=== PATIENT | female | born 1950 | race Caucasian/White ===

== ENCOUNTER 2025-05-08 13:35 | Outpatient (AMB) | payer MEDICARE, SELFPAY ==
--- NOTE | 2025-05-08 13:39 | MHC.OFFVIS ---
Vital Signs 05/08/25 13:40 Height 5 ft 5 in Weight 138 lb 14.259 oz BMI 23.1 BP 100/60 Blood Pressure Location Rt brachial Position Sitting Pulse 72 Pulse Source Pulse Oximeter Pulse Oximetry (%) 98 Oxygen Delivery Method Room Air Intake Visit Reasons: arthritis Intake Note: Patient presents today for arthritis. Accompanied by: Self / Same As Patient Allergies cyclosporine (From Restasis) Allergy (Mild, Verified 05/08/25 13:48) eye burning dapagliflozin (From Farxiga) Allergy (Mild, Verified 05/08/25 13:48) Nausea erythromycin base Allergy (Mild, Verified 05/08/25 13:48) Nausea semaglutide (From Ozempic) Allergy (Mild, Verified 05/08/25 13:48) Nausea valsartan (From Diovan) Allergy (Mild, Verified 05/08/25 13:48) Cough lisonopril Allergy (Mild, Uncoded 05/08/25 13:48) Cough meibo Allergy (Mild, Uncoded 05/08/25 13:48) eye running HPI HPI arthritis: Details: MS lasting all day. Pain in hands, toes and back. Hands are cramping. No recent infections. Lasting Simponi Aria 03/13/2025. November 2024 after vacation she had CHF exacerbation due to nonadherence to low-sodium diet. She was treated with 5 day course of furosemide. She continues to monitor her weight and uses furosemide PRN if her weight increases. She continues to take calcium and vitamin-D. She is not taking any multivitamin. DXA is scheduled on 06/07/2025. 3 weeks ago she had lumbar spine x-ray. Patient reports that her doctor told her that lumbar spine arthritis is progressing. She was prescribed physical therapy but has lost requisition on 2 occasions. Physical Exam Vital Signs: Last Vital Signs Pulse 72 05/08/25 13:40 BP 100/60 05/08/25 13:40 Pulse Ox 98 05/08/25 13:40 Oxygen Delivery Method Room Air 05/08/25 13:40 BMI result Body Mass Index 23.1 Const Other: General: Comfortable CVS: RRR Respiratory: clear to auscultation bilaterally. Good respiratory effort Skin: No lesions seen MSK: Chronic synovial thickening left 2nd MCP. Volar subluxation of bilateral 2nd and 3rd MCPs with ulnar deviation. She has dactylitis of right 2nd toe distally with tender PIP and DIPJ. No MTP tenderness. No ankle tenderness. Normal range motion of upper extremities and lower extremities. Assessment & Plan Assessment & Plan (1) Psoriatic arthritis: Comment: She has developed recurrent right 2nd toe dactylitis. She is due for Simponi Aria periods Taltz was approved in December but it was not started. We discussed changing DMARD therapy to better control her inflammatory arthritis. Rheumatology history: Presenting with dactylitis right 2nd to 4th toe with enthesitis (plantar fasciitis and trochanteric bursitis). HLA B27 negative. Dactylitis resolve with diclofenac gel initially but became recurrent. Contraindication to oral NSAIDs due to CHF. Otezla caused worsening GERD. Cosentyx-patient could not afford high co-pay 1300 dollars a month. Ustekinumab November 08, 2019 to March 15, 2020 insurance stopped coverage. Xeljanz July 15, 2020 to September 14, 2020 ($ 1600 monthly cost, patient purchasing administrative assistant program denied). Remicade January 13, 2021 to October 15, 2021 discontinued due to recurrent UTIs. Simponi January 2022-she is also on low-dose methotrexate. TB 06/2024 negative [facility] records. Code(s): L40.50 - Arthropathic psoriasis, unspecified Category: Medical Plan: Labs for drug monitoring on high-risk medication ordered Patient will call office to find out cost of co-pay for Taltz. If it is financially feasible, I will send prescription for Taltz 160 mg once for induction followed by 80 mg every 4 weeks for maintenance She will need nurse teaching visit for 1st dose administration in the office and labs 1 month after starting Taltz with CBC, creatinine, AST, ALT [facility] Return to clinic in 3 months (2) Other assisted (current) drug therapy: Code(s): Z79.899 - Other keno terminal operator (current) drug therapy Category: Medical Plan: See above (3) Chronic combined systolic and diastolic CHF (congestive heart failure): Comment: Stable Code(s): I50.42 - Chronic combined systolic (congestive) and diastolic (congestive) heart failure Category: Medical Plan: Follow up with Cardiology (4) Osteoporosis: Comment: With fragility fracture right shoulder. She has history of GERD. She received Reclast 10/30/2019, October 2020, November 2021, November 2022, November 2023. Code(s): M81.0 - Age-related osteoporosis without current pathological fracture Category: Medical Qualifiers: Osteoporosis type: age-related Presence of current pathological fracture: without current pathological fracture Qualified Code(s): M81.0 - Age-related osteoporosis without current pathological fracture Plan: Calcium, albumin, vitamin-D ordered Continue calcium and vitamin-D supplement DXA is scheduled on 06/07/2025 (5) Lumbar spondylosis: Comment: Chronic, progressive per patient confirmed on recent L-spine x-ray. Code(s): M47.816 - Spondylosis without myelopathy or radiculopathy, lumbar region Category: Medical Plan: PT ordered for patient for back strengthening Requesting L-spine x-ray from [facility] (6) Muscle cramp: Comment: Involves her hands. Recurrent. Self-limited. She hydrates well. Code(s): R25.2 - Cramp and spasm Category: Medical Plan: I will order electrolytes to rule out electrolyte disturbance Return to clinic in 3 months Orders: Orders Complete Blood Count Auto Diff Today Z79.899 - Other keno terminal operator (current) drug therapy Creatinine Today Z79.899 - Other keno terminal operator (current) drug therapy C Reactive Protein Today Z79.899 - Other keno terminal operator (current) drug therapy Albumin Level Today M81.0 - Age-related osteoporosis without current pathological fracture Phosphorus Today R25.2 - Cramp and spasm Sodium Today R25.2 - Cramp and spasm PT Evaluation and Treatment Today M47.816 - Spondylosis without myelopathy or radiculopathy, lumbar region Alanine Aminotransferase Today Z79.899 - Other assisted (current) drug therapy Aspartate Amino Transferase Today Z79.899 - Other keno terminal operator (current) drug therapy Erythrocyte Sedimentation Rate Today Z79.899 - Other keno terminal operator (current) drug therapy Hepatitis B,C Profile Today Z79.899 - Other keno terminal operator (current) drug therapy Vitamin D 25-OH Total Today M81.0 - Age-related osteoporosis without current pathological fracture Calcium Today M81.0 - Age-related osteoporosis without current pathological fracture Magnesium Today R25.2 - Cramp and spasm Potassium Today R25.2 - Cramp and spasm Coding Level of Care Code Est Pt Level 5 (79783) Complex EM visit Add On G2211 Diagnoses Psoriatic arthritis L40.50 Other assisted (current) drug therapy Z79.899 Chronic combined systolic and diastolic CHF (congestive heart failure) I50.42 Age-related osteoporosis without current pathological fracture M81.0 Osteoporosis type: age-related Presence of current pathological fracture: without current pathological fracture Lumbar spondylosis M47.816 Muscle cramp R25.2 Time Spent (min) 40
[2025-05-08 13:40] VITALS: BP 100/60; PULSE 72; O2SAT 98; BMI 23.1
--- OUTSIDE RECORDS SUMMARY | 2025-05-08 14:03 | XMS_ITS | Clinical Summary ---
Author Organization [facility] Address [address] [place] [phone] Phone Care Team Providers Care Deicer Repairer Electric Name Role Phone Aramis Acosta MD Primary Care Provider [phone] Allergies Active Allergy Reactions Criticality Noted Date Comments Cyclosporine Itching,Other (See Comments),Rash Low 04/16/2016 Other Reaction(s): Burning in Eyes Other reaction(s): Other (See Comments) Dapagliflozin 09/11/2024 Other Reaction(s): caused UTI Erythromycin Nausea And Vomiting,Nausea and/or Vomiting 12/10/2009 Lisinopril Cough,Other (See Comments) 02/09/2010 Cough Medications golimumab (SIMPONI ARIA) 12.5 mg/mL Soln Inject 50 mg into the vein. Active alcaftadine (LASTACAFT) 0.25 % Drop Place 1 drop into each eye daily. Active acetaminophen (TYLENOL ARTHRITIS PAIN) 650 MG CR tablet Tylenol Arthritis Pain Active furosemide (LASIX) 20 MG tablet Take 20 mg by mouth daily as needed. Active zoledronic acid (RECLAST) 5 mg/100 mL PgBk as directed Intravenous Once a year x 3 years Active aspirin 81 MG EC tablet Take 81 mg by mouth daily. Active dextran 70-hypromellose -glycern (ARTIFICIAL TEARS) 0.1-0.3-0.2 % as directed Ophthalmic Active betamethasone valerate 0.1 % ointment 1 Application. Activ e calcium carbonate-vit D3-min 600 mg-10 mcg (400 unit) Tab Take by mouth. Activ e esomeprazole (NEXIUM) 40 MG capsule 1 capsule. Active estradioL (ESTRACE) 0.5 MG tablet Take 0.5 mg by mouth daily. for 90 days Active sacubitriL-vals malorie (ENTRESTO) 24-26 mg per tablet TAKE 1 TABLET BY MOUTH TWICE DAILY Oral for 90 Active spironolactone (ALDACTONE) 25 MG tablet Take 1 tablet by mouth daily. 4 Active venlafaxine (EFFEXOR-XR) 37.5 MG 24 hr capsule Take 37.5 mg by mouth daily. Active carvedilol (COREG) 6.25 MG tablet Take 6.25 mg by mouth 2 (two) times a day. Active turmeric 400 mg Cap Take by mouth daily. Active methotrexate sodium 25 mg/mL injection INJECT 10 MG/0.4ML UNDER THE SKIN ONCE A WEEK Active folic acid (FOLVITE) 1 MG tablet Take 1 tablet by mouth every morning. 4 Active Active Problems Problem Noted Date Diagnosed Date Hypertension 09/12/2024 Overview (09/12/2024): Last Assessment & Plan: The patient is labeled as having hypertension her heart failure medications have her in a hypotensive state which she appears to tolerate quite well running between upper 80s and 90s systolically. She has no syncopal episodes a few months ago her fark CIGA had to be discontinued by the heart failure specialist and carvedilol was reduced in half she did not really notice a significant improvement but does not believe this is interfering in her quality of life. No additional medication adjustments are made today. She knows that when she is exercising in this heat she should be cognizant of an adequate amount of fluid without excessive fluid intake which she appears to have a good understanding of. 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 Will repeat TFTs. Multinodular goiter 09/12/2024 Assessment & Plan (09/12/2024 1:18 PM EST): Hx MNG w/ benign FNA x 3 in 2015 per PCP notes. Has hoarseness. Has seen ENT w/o finding (?~ 18 months ago). Has hx laryngeal polyps, post-nasal drip & GERD. For EGD for dysphagia which seems lower in chest. Doubt either related to thyroid. Would consider revisit w/ ENT. Will repeat thyroid u/s to assess stability. Hair loss 09/12/2024 Assessment & Plan (09/12/2024 1:19 PM EST): Will repeat TFTs along w/ other labs. Likely at least in part due to age/genetics as apparently both sisters w/ similar (worse). Age-related osteoporosis wit hout current pathological fracture 09/12/2024 Assessment & Plan (09/12/2024 1:16 PM EST): S/p shoulder fx after fall. Has received zoledronic acid, she believes x3. Seeing dentist regularly. Managed by rheumatology. Would discuss with them ongoing treatment as typically do not use both estrogen & anti-resorptive therapy concurrently & she has no plans to stop estrogen. IBS (irritable bowel syndrome) 04/26/2021 VT (ventricular tachycardia) 04/22/2021 Overview (09/12/2024): Last Assessment & Plan: She has a prophylactic ICD in place I spoke with the device clinic who did an evaluation of her most current data she tends to have nonsustained V. tach about twice a month and no greater than 9 bpm. She is on a beta-marco antonio she does not note these symptomatically. We will continue to monitor. Again electrolytes are stable AICD (automatic cardioverter/defibrillator) pres ent 02/05/2020 Psoriasis 08/28/2018 Hearing loss 03/11/2014 Depression 08/10/2013 Colon polyp 01/03/2013 Overview (09/12/2024): 01/06 Dr Ash; EGD normal Mild sleep apnea 06/23/2011 Overview (09/12/2024): No treatment advised Onychomycosis 03/25/2011 Sun-damaged skin 12/23/2010 Overview (09/12/2024): Sees derm yearly Dyslipidemia 05/20/2010 Overview (09/12/2024): Last Assessment & Plan: The patient was found to have an 80% stenosis of her mid LAD in 2020 and heart catheterization with circumflex territory at 65% OM1 and L PDA between 35 and 30% respectively. Because she was completely asymptomatic and it was not theorized to be a contributing factor to her cardiomyopathy she has been treated medically and despite walking 10,000 steps a day climbing a steep set of stairs she has absolutely no anginal symptoms. I would highly recommend she be on a statin we will start a minuscule amount of rosuvastatin she has been instructed on the potential side effects especially given her psoriatic arthritis and chronic arthritic pains if she believes anything is where she should stop the drug and otify me. If she is able to tolerate the statin can plan to collect repeat lipids if not done so by her follow-up visit. Idiopathic cardiomyopathy 12/20/2009 Overview (09/12/2024): 12/03 EF approx 25%; 09/04 similar; 11/[address] Tan 06/2019 EF 25-30%, similar 2020 Referred to advanced [facility] failure and [facility] at [facility] 07/2019 Stable EF 03/2021 Last Assessment & Plan: Idiopathic cardiomyopathy theorized to possibly be a genetic etiology. She appears euvolemic. She exercises regularly she is on Entresto spironolactone beta- blockade but she cannot tolerate Farxiga as she becomes volume depleted and she has chronic UTI. She is followed by the heart failure clinic 2 times a year and appears to be doing exceptionally well. He should continue to monitor her volume status closely and notify us particularly of any extreme changes in either direction. GERD (gastroesophageal reflux disease) 0 Allergic rhinitis 11/09/2007 Immunizations Immunization Administration Dates Next Due COVID-19 (Pre-07/18) Pfizer Vaccine, Bivalent 12+ 09/23/2022 COVID-19 (Pre-07/18) Pfizer Vaccine, mRNA, PF 04/08/2022,08/14/2021,12/19/2020,11/28 COVID-19 Moderna Spikevax Vaccine 12+ 08/21/2023 INFLUENZA, SPLIT VIRUS, TRIV ALENT W/ PRESERVATIVE IM 06/07/2023 Influenza High-Dose Quadriva lent Preservative Free IM 05/30/2020,07/12/2016 Pneumococcal conjugate PCV20 11/25/2023 Pneumococcal polysaccharide PPSV23 06/18/2021 Tdap 05/22/2014 Zoster recombinant 10/02/2020 Family History Medical History Relation Comments Thyroid disease Sister both sisters, at least 1 w/ Uvaldo's, ? if mother also had? Relation Status Comments Sister Social History Tobacco Use Types Packs/Day Years Used Date Smoking Tobacco: Never Smokeless Tobacco: Never Tobacco Cessation:Counseling Given: Not Answered Alcohol Use Standard Drinks/Week Comments Yes 0 (1 standard drink = 0.6 oz pur e alcohol) A drink every night. Education Answer Date Recorded Are you interested in more education? Not on ananth e 04/06/2024 Are you concerned about learning? Not on file 04/06/2024 No 04/06/2024 No 04/06/2024 Digital Access Answer Date Recorded No 04/06/2024 No 04/06/2024 Reliable internet access at home? Not on file 04/06/2024 Device with a working camera? Not on file Comments Unknown Sex and Gender Information Value Date Recorded Sex Assigned at Not on file Legal Sex Female 3:13 PM EDT Gender Identity Not on file Sexual Orientation Not on file Last Filed Vital Signs Vital Sign Reading Time Taken Comments Blood Pressure 102/52 09/11/2024 12:51 PM EST Pulse 80 09/11/2024 12:51 PM EST Temperature 36.3 C (97.3 F) 09/11/2024 12:51 PM EST Respiratory Rate 19 09/11/2024 12:51 PM EST Oxygen Saturation 97% 09/11/2024 12:51 PM EST Inhaled Oxygen Concentration - - Weight 65.8 kg (145 lb) 09/11/2024 12:51 PM EST Height 153.7 cm (5' 0.51 ) 09/11/2024 12:51 PM Bryant LING Body Mass Index 27.84 09/11/2024 12:51 PM EST Plan of Treatment Upcoming Encounters Date Type Department Care Team (Late st Contact Info) Description 09/16/2025 10:00 AM EST Office Visit [facility] Endocrinology [address] [phone] Ara Walton MD [address] [place] [phone] [email or web address] Maintenance Due Date Last Done Comments POTASSIUM LEVEL 1950 DEPRESSION SCREENING 1962 HEPATITIS C SCREENING 1968 MAMMOGRAM 1990 COLOGUARD 1995 COLONOSCOPY 1995 COLORECTAL CANCER SCREENING 1995 FIT TEST 1995 FOBT 1995 SIGMOIDOSCOPY 1995 VIRTUAL COLONOSCOPY 1995 RSV VACCINE (1 - Risk 60-74 years 1-dose series) 2010 OSTEOPOROSIS SCREENING INITIAL (ONE-TIME) 2015 ZOSTER VACCINES (2 of 2) 11/27/2020 10/02/2020 Adult Td,Tdap Booster 05/22/2024 05/22/2014 COVID-19 VACCINE ( season) 2024 08/21/2023, 09/23/2022, 04/08/2022, Additional history exists BLOOD PRESSURE 03/12/2025 09/11/2024 LIPID PANEL 10/07/2026 10/07/2021 PNEUMOCOCCAL VACCINES (50+ years) Completed 11/25/2023, 06/18/2021 SMOKING STATUS SCREENING (Once After 26 Yrs) Completed 09/11/2024 HEPATITIS A VACCINES Aged Out No long er eligible based on patient's age to complete this topic HIB VACCINES Aged Out No longer eligi ble based on patient's age to complete this topic MENINGOCOCCAL VACCINES (ACWY) Aged Out No longer eligible based on patient's age to complete this topic MENINGOCOCCAL VACCINES (B) Aged Out N o longer eligible based on patient's age to complete this topic Medical Devices Not on file Insurance [employer] MED[employer] SUPPLEMENT MEDICARE PART A & B [employer] SUPPLEMENT MEDICARE PART A & B [employer] SUPPLEMENT MEDICARE PART A & B [employer] SUPPLEMENT MEDICARE PART A & B [employer]EX SUPPLEMENT MEDICARE PART A & B [employer] MEDEX SUPPLEMENT MEDICARE PART A & B Care Teams Deicer Repairer Electric Relationship Specialty Start Date End Date Aramis Acosta MD [address] [place] [id number] PCP - General Internal Medicine 03/21/24 Additional Source Comments The information contained in this document represents components of the legal health record. It is not the complete legal health record.[facility]
--- OUTSIDE RECORDS SUMMARY | 2025-05-08 14:03 | XMS_ITS | Patient Health Record ---
Author Organization [facility] Address [address] [place] [address] Care Team Providers Care Behavioral Health Case Manager Name Role Phone Aramis Acosta MD Primary Care Provider Unavail able Black, Heidi Unavailable [phone] Allergies Allergen (clinical drug ingredient) Drug/Non Drug Allergy documented on EMR Reaction Allergy Type Onset Date Status erythromycin Erythromycin violently sick Drug Allergy Active lisinopril Lisinopril cough Drug Allergy Activ e codeine Codeine stomach upset Drug Allergy Act kindra Reason For Referral No Information Medications Medication SIG (Take, Route, Frequency, Duration) Notes Start Date End Date Status Coenzyme Q-10 Active Carvedilol Active Aspirin 81mg Active Estradiol-Norethindrone Acet Active Omeprazole Active Venlafaxine HCl Acti ve Glucosamine Chondroitin Complx Active Spironolactone-HCTZ Active Fioricet Active Terbinafine HCl Acti ve Calcium + D Active Loratadine Active Vitamin D Active Valsartan Active Lidoderm 5 % 1 patch to intact sk in remove after 12 hours Externally Once a day Active Lactobacillus Active Lidocaine Active Problems Problem Type SNOMED Code ICD Code Onset Dates Problem Status W/U Status Risk Notes Problem Bursitis (94779847) Bursitis (727.3) Active confirmed Problem Onychomycosis (031294829) Onychomycosis (110.1) Active confirmed Problem Pain in limb (21561178) Pain in Limb (729.5) Active confirmed Problem Neuralgia - Neuritis (729.2) Active confirmed Problem Myositis (38876079) Myositis (729.1) Active confirmed Problem Pain in limb (70322087) Pain in Limb (729.5) Active confirmed Problem Plantar fasciitis (046150713) Plantar Fasciitis (728.71) Active confirmed Plan Of Treatment Pending Test Test Name Order Date *Uric Acid, Serum 08/22/2012 *CBC With Differential/Platelet 08/22/20 12 *Sedimentation Rate-Westergren 2 X ray : Foot, left 3V 08/22/2012 X ray : Foot, left 3V 02/04/2012 X ray : Foot, right 3V 02/04/2012 X ray : Foot, right 3V 08/22/2012 [id number] 05/26/2012 [id number] 04/28/2012 [id number] 05/12/2012 [id number] Debride <25 sq cm 06/30/2012 [id number] SKIN/TISSUE 05/26/2012 [id number] SKIN/TISSUE 05/12/2012 Insurance Providers Payer Name Payer Address Payer Phone Subscriber Number Group Number Insured Name Patient Relationship to Insured Coverage Start Date Coverage End Date [facility] [address] [place] [address] [id number] Shahana Quach Self - patient is the insured Medical (General) History Medical History History ICD Code osteopenia idiopathic cardiomyopathy gastroesophageal reflux disease (GERD) allergic rhinitis back pain hypertension hashimotos thyroiditis thoracic, lumbosacral neuritis, radiculi tis dyslipidemia chronic fatigue syndrome Surgical History Surgery Date(Month/Year) cardiac pacemeker 10/2010
--- OUTSIDE RECORDS SUMMARY | 2025-05-08 14:03 | XMS_ITS | Patient Health Record ---
Author Organization [facility] Address [address] [place] [address] Care Team Providers Care Manager Progressive Care Name Role Phone Miguelina Gaitan Primary Care Provider MIGUELINA Causey Unavailable [phone] Allergies Allergen (clinical drug ingredient) Drug/Non Drug Allergy documented on EMR Reaction Allergy Type Onset Date Status hydrochlorothiazide / valsartan Diovan HCT cough Drug Allergy Active cyclosporine Restasis rash/dermati tis and itching/prur itus Drug Allergy Active hydrochlorothiazide / valsartan Valsartan-hydroCHLOROth iazide cough Drug Allergy Active cyclosporine Cyclosporine itching/prur itus Drug Allergy Active hydrochlorothiazide Hydrochlorothiazide Unknown D rug Allergy Active lisinopril Lisinopril cough Drug Allergy Active erythromycin Erythromycin nausea/vomit ing Drug Allergy Active valsartan Valsartan Unknown Drug Allergy Active Reason For Referral No Information Medications Medication SIG (Take, Route, Frequency, Duration) Notes Start Date End Date Status Methotrexate 2 MG/ML as directed Orally once a week Active Folic Acid Active Simponi Aria 50 MG/4ML as directed Intravenous Active GenTeal Tears prn Active [place] 3 Active Tylenol Arthritis Pain Active Entresto 49-51 MG 1 tablet Orally Twice a day Active Calcium + D Active Sacubitril-Valsartan 49-51 MG 1 tablet Orally Twice a day Active Turmeric 400 MG as directed Orally Not-Taking Carvedilol 12.5 MG 1 tablet with food Orally Twice a day Active Apple Cider Vinegar Not-Taking Venlafaxine HCl 75 MG 1 tablet with food Orally Once a day Active Estradiol 0.5 MG 1 tablet Orally Once a day Active Spironolactone 25 MG 1 tablet Orally Active Macrobid 100 MG 1 capsule at bedtime with food Orally Once a day Not-Taking Estradiol 0.1 MG/GM as directed Vaginal Not-Taking Farxiga 10 MG 1 tablet Orally Once a day Not-Taking Aspirin 81 MG 1 tablet Orally Once a day Active NexIUM 40 MG 1 packet mixed with 15 ml of water Orally Once a day Active Betamethasone Valerate 0.1 % 1 application Externally Once a day PRN Active Diclofenac Sodium 1 % as directed Externally PRN Active Dextran 70-Hypromellose 0.1-0.3 % as directed Ophthalmic Not-Taking ZyrTEC Allergy 10 MG 1 tablet Orally Onc e a day Not-Taking Uduzbyrjfe-MKPQ-Aqdylf ne 50-325-40 MG 1 tablet as needed Orally every 4 hrs Not-Taking Ustekinumab 45 MG/0.5ML as directed Subcutaneous Not-Taking Fish Oil-Cholecalciferol 184-250 MG-UNIT as directed Orally Not-[place] Furosemide 20 MG 1 tablet Orally Once a day once a week Not-Taking Problems Problem Type SNOMED Code ICD Code Onset Dates Problem Status W/U Status Risk Notes Problem Psoriatic arthritis (091360743) Psoriatic arthritis (L40.50) Active confirmed Problem Right lumbar radiculopathy (M54.16) Active confirmed Problem Polyneuropathy (46352645) Other polyneuropathy (G62.89) Active confirmed Vital Signs Heart Rate 76 /min 03/08/2025 Temperature 96.9 degrees Fahrenheit 03/08/2025 Respiratory Rate 16 /min 03/08/2025 Height 5ft 5in in 03/08/2025 Weight 140.1 lbs 03/08/2025 BMI 23.31 kg/m2 03/08/2025 Procedures Procedure Date Ordered Date Performed Result Body Sit e INJ TENDON SHEATH/LIGAMENT/FASCIA 03/08/2025 N/ A Encounters Encounter Location Date Provider Diagnosis [facility] [address] [address] 03/08/2025 MIGUELINA HINES Psoriatic arthritis L40.50 ; Peroneal tendinitis, unspecified laterality M76.70 ; Other polyneuropathy G62.89 ; Pain in left foot M79.672 ; Pain in right foot M79.671 and Right lumbar radiculopathy M54.16 Assessments Encounter Date Diagnosis (ICD Code) Assessment Notes Treatment Notes Treatment Clinical Notes Section Notes 03/08/2025 Psoriatic arthritis (ICD-10 - L40.50) This is an outpatient visit for evaluation and management of an existing patient, which required appropriate review of pertinent medical history, review of any previous imaging, review of all previous records, and examination and complex decision-making . Time was 45 minutes spent in review of all these facets including face to face discussion with the patient regarding my findings and in discussion of a current and future treatment plan. I reviewed the patient medical history and radiographs in detail with the patient. I explained to the patient that most of her pain locations in her feet are associated with psoriatic arthritis changes. I explained that this disease has progressed, and she likely had it long before her diagnosis. We discussed this can make certain locations painful. She has almost total loss of the fibula sesamoid on the left foot, and erosive changes of the tibial and fibula sesamoid on the right foot. She has no history of trauma or surgery. She has no pain on palpation. I discussed the erosive nature is likely contributing to her plantar fascia pain, as her flexor tendons go through those bones. We discussed that she also has a neurological component to her pain. I explained this could either be caused by her multiple autoimmune disorders or her spinal issues. I explained the rock sensation, the burning sensation, and the electric shocks are all nerve in origin. We discussed Leneva injections may help by building up her fat pad but I do not believe will alleviate any of the neurological pain she is experiencing. We discussed that these injections are not covered by insurance. We discussed they may last 1-3 years. She is currently following with rheumatology. Ultimately her pain is from systemic conditions. We discussed the only treatment for localized pain is symptomatic. She did not have improvement with custom orthotics. She wears OTC inserts with improvement. She has found shoes that fit her comfortably. We discussed this pain will never fully go away or fade away. I encouraged the patient to contact my office if she develops an exacerbation in either foot. 03/08/2025 Peroneal tendinitis, unspecified laterality (ICD-10 - M76.70) Consent was reviewed and signed by the patient for a steroid injection into the peroneal brevis insertion of the right and left foot. Pt agreed. 3cc total steroid injection was given into the right and left foot. Pt tolerated well. Post-Injection instructions were given to the patient. Pt instructed to ice/elevate the foot tonight. Discussed the pathology of peroneal tendinitis, what that means and how it affects the patient's ADL. Reviewed stretching and icing exercises with the patient, handout dispensed, and patient instructed to perform twice daily. 03/08/2025 Other polyneuropathy (ICD-10 - G62.89) 03/08/2025 Pain in left foot (ICD-10 - M79.672) 03/08/2025 Pain in right foot (ICD-10 - M79.671) 03/08/2025 Right lumbar radiculopathy (ICD-10 - M54.16) Plan Of Treatment Pending Test Test Name Order Date X ray : Foot, left 3v 02/10/2022 X ray : Foot, right 3v 02/10/2022 INJ TENDON SHEATH/LIGAMENT/FASCIA 2024 Insurance Providers Payer Name Payer Address Payer Phone Subscriber Number Group Number Insured Name Patient Relationship to Insured Coverage Start Date Coverage End Date Medicare of [place] [address] [place] [phone] [id number] Shahana Quach Self - patient is the insured Medex [facility] [address] [place] [address] [phone] [id number] Shahana Quach Self - patient is the insured Medications Administered Medication Instructions Date of Administration Dosage Notes dexAMETHasone Sod Phosphate PF 03/08/2025 0.5 m L Kenalog 03/08/2025 0.5 mL Medical (General) History Medical History History ICD Code IBS (irritable bowel syndrome) VT (ventricular tachycardia) fatigue HFrEF (heart failure with reduced ejecti on fraction) AICD (automatic cardioverter/defibrillat or) present psoriasis chronic foot pain multinodular goiter hearing loss depression colon polyp 01/06 Dr. Ash; EGD normal mild sleep apnea onychomycosis osteoporosis sun-damaged skin dyslipidemia idiopathic cardiomyopathy GERD (gastroesophageal reflux disease) allergic rhinitis chronic low back pain hypertension Uvaldo's disease psoriatic arthritis Surgical History Surgery Date(Month/Year) throat polyps, benign hysterectomy with sling, rectocele repai r 04/17/2018 tubal ligation Hospitalization History Reason Date(Month/Year) defibrillator implant 2013 vaginal delivery (identical twin girls) 1969
--- OUTSIDE RECORDS SUMMARY | 2025-05-08 14:03 | XMS_ITS | Clinical Summary ---
Author Organization [facility] Address [address] [place] [address] Care Team Providers Care Floor Worker Name Role Phone Miguelina Gaitan MD Primary Care Provider + Allergies Active Allergy Reactions Criticality Noted Date Comments Cyclosporine Itching,Other (See Comments) Low 04/16/2016 Valsartan 09/28/2018 Erythromycin 09/28/2018 Lisinopril 09/28/2018 Valsartan-Hydrochlorothiazid e 08/13/2016 cough Medications Medication Sig Dispensed Refills Start Date End Date Status carvedilol (COREG) 12.5 MG tablet 0 07/20/2018 Active furosemide (LASIX) 20 MG tablet 0 09/12/2018 Active gabapentin (NEURONTIN) 100 MG capsule 0 09/17/2018 Active ENTRESTO 24-26 MG per tablet 0 09/27/2018 Active spironolactone (ALDACTONE) tablet 25 mg 0 07/09/2018 Active Esomeprazole Magnesium (NEXIUM PO) Take by mouth. 0 Active venlafaxine (EFFEXOR) 75 MG tablet Take 75 mg by mouth 2 (two) times a day. 0 Active Calcium Carbonate-Vitamin D3 (CALCIUM 600-D) 600-400 MG-UNIT TABS Take by mouth. 0 Active Coenzyme Q10 (CO Q-10) 200 MG CAPS Take by mouth. 0 Act kindra lidocaine (LIDODERM) 5 % Place 1 patch onto the skin daily. Remove & Discard patch within 12 hours or as directed by MD 0 Active aspirin EC 81 MG tablet Take 81 mg by mouth daily. 0 Active estradiol (ESTRACE) 0.5 MG tablet Take by mouth. 0 Active Active Problems Problem Noted Date Diagnosed Date Greater trochanteric bursitis of left hip 2018 Family History Medical History Relation Name Comments Cancer Father Cancer Mother Clotting disorder Mother Hypertension Mother Anesthesia problems Sister Heart disease Sister Hypertension Sister Relation Name Status Comments Father Mother Sister Social History Tobacco Use Types Packs/Day Years Used Date Smoking Tobacco: Never Assessed Sex and Gender Information Value Date Recorded Sex Assigned at Not on file Gender Identity Not on file Sexual Orientation Not on file Job Start Date Occupation Industry Not on file Not on file Not on file Last Filed Vital Signs Vital Sign Reading Time Taken Comments Blood Pressure - - Pulse - - Temperature - - Respiratory Rate - - Oxygen Saturation - - Inhaled Oxygen Concentration - - Weight 66.7 kg (147 lb) 12/29/2018 9:29 AM EDT Height 165.1 cm (5' 5 ) 12/29/2018 9:29 AM EDT Body Mass Index 24.46 12/29/2018 9:29 AM EDT Plan of Treatment Health Maintenance Due Date Last Done Comments Hepatitis C Screening 1950 COVID-19 Vaccine (#1) 02/06/1951 Depression Screening 1962 Preventative Health Evaluation 1968 Colon Cancer Screening (Colonoscopy) 1995 Breast Cancer Screening (Mammogram) 2000 Shingrix-Zoster Vaccine (1 of 2) 2000 Fall Risk Assessment 2015 Osteoporosis Screening (DEXA Scan) 2015 Pneumococcal Vaccine (1 of 1 - PCV) 2015 DTap / Tdap / Td (2 - Td or Tdap) 05/22/2024 014 Influenza Vaccine (#1) 2025 07/12/2016 RSV Adult > 60+ Yrs or Pregn ant (1 - 1-dose 75+ series) 2025 Hepatitis B Vaccines Aged Out No long er eligible based on patient's age to complete this topic RSV Ped < 20 months Aged Out No longe r eligible based on patient's age to complete this topic Care Teams Floor Worker Relationship Specialty Start Date End Date Miguelina Gaitan MD [address] [facility] [address] [place] [address] PCP - General Internal Medicine 08/29/18
--- OUTSIDE RECORDS SUMMARY | 2025-05-08 14:03 | XMS_ITS | Encounter Summary ---
Author Organization [facility] Address [address] [place] [address] Care Team Providers Care Battery Container Inspector Name Role Phone Aramis Acosta MD Primary Care Provider [phone] Encounter Details Date Type Department Care Team (Late st Contact Info) Description 05/08/2025 Telephone [facility] [address] [facility] [address] [place] [id number] Ailyn Tate PA [address] [place] [address] Social History Tobacco Use Types Packs/Day Years Used Date Smoking Tobacco: Former Cigarettes Smokeless Tobacco: Never Alcohol Use Standard Drinks/Week Comments Yes 4.2 (1 standard drink = 0.6 oz p ure alcohol) Comments Unknown Sex and Gender Information Value Date Recorded Sex Assigned at Not on file Legal Sex Female 1:29 PM EST Gender Identity Not on file Sexual Orientation Not on file documented as of this encounter Progress Notes * Jacey Montoya MA - 05/08/2025 12:50 PM EDT Noted in Murj * VIRAJ Ortiz - 05/08/2025 12:26 PM EDT See MURJ encounter titled Ancillary Procedure, report may be found under media, dated: When patient trips [facility] please notify us again she has upcoming visit with Vince in June if she isERI around that time will use his H&P but if she has not she may need to come in and see myselfor Chichi for an updated H&P within timeframe for generator change. documented in this encounter Plan of Treatment Upcoming Encounters Date Type Department Care Team (Late st Contact Info) Description 07/19/2025 9:10 AM EDT Office Visit [facility] [address] [facility] [address] [place] [address] Vince Escobedo, [address] [place] [address] documented as of this encounter Visit Diagnoses Not on filedocumented in this encounter Care Teams Battery Container Inspector Relationship Specialty Start Date End Date Aramis Acosta MD [address] [place] [address] PCP - General Internal Medicine 01/09/25 documented as of this encounter
--- OUTSIDE RECORDS SUMMARY | 2025-05-08 14:03 | XMS_ITS | Patient Health Record ---
Author Organization [employer] [facility] Address [address] [place] [address] Care Team Providers Care Stadium Attendant Name Role Phone JORDON HILL PA-C Primary Care Provider Unavail able Sindi Mcneill Unavailable [phone] Allergies Allergen (clinical drug ingredient) Drug/Non Drug Allergy documented on EMR Reaction Allergy Type Onset Date Status cyclosporine Restasis Burning in Eyes Drug Allergy Active lisinopril Lisinopril Cough Drug Allergy Activ e Reason For Referral No Information Medications Medication SIG (Take, Route, Frequency, Duration) Notes Start Date End Date Status Reclast 5 MG/100ML as directed Intravenous Once a year x 3 years Active Estradiol 0.5 MG 1/2 TAB Orally Once a day; Duration: 90 days 12/30/2021 Active Carvedilol 6.25 MG 1 tablet with food Orally Twice a day Active GenTeal Tears 0.1-0.2-0.3 % as directed Ophthalmic Activ e Methotrexate Sodium 50 MG/2ML INJECT 10 MG/0.4ML UNDER THE SKIN ONCE A WEEK Injection; Duration: 28 Days Active Aspirin 81 MG 1 tablet Orally Once a day; Duration: 30 day(s) Active Estradiol 0.5 MG 1 tablet Orally Once a day; Duration: 90 days 04/13/2023 Active Estradiol 0.5 MG 1 tablet Orally Once a day; Duration: 90 days 04/18/2024 Active Calcium 600 + D 600-200 MG-UNIT 1 tablet with a meal Orally Twice a day Active Betamethasone Valerate 0.1 % 1 application Externally as needed Active Diclofenac Sodium 1 % as directed Externally Not-Taking Entresto 24-26 MG TAKE 1 TABLET BY TWICE DAILY Oral; Duration: 90 Active NexIUM 40 MG 1 capsule Orally Onc e a day; Duration: 30 day(s) Active Lastacaft 0.25 % 1 drop into affected eye Ophthalmic Once a day Active Spironolactone 25 MG TAKE 1 TABLET BY MO UTH ONCE DAILY Oral; Duration: 90 Active Simponi Aria 50 MG/4ML as directed Intravenous Active Estradiol 0.5 MG TAKE 1 TABLET BY QUAN TH EVERY DAY AT BEDTIME Oral; Duration: 30 Active Furosemide 20 MG 1 tablet Orally as needed Active Tylenol Arthritis Pain Active Venlafaxine HCl 75 MG TAKE 1 TABLET BY M OUT ONCE DAILY Oral; Duration: 90 Active Social History Tobacco Use: Social History Observation Description Date Details (start date - stop date) Former Smoker NA - NA Tobacco Use/Smoking Question Answer Notes Are you a former smoker How long has it been since you last smoked? > 10 years Alcohol Screen (Audit-C) Question Answer Notes Did you have a drink contain ing alcohol in the past year? Yes How often did you have a dri nk containing alcohol in the past year? 4 or more times a week (4 points) How many drinks did you have on a typical day when you were drinking in the past year? 1 or 2 drinks (0 point) Points 4 Interpretation Positive Sexual History Question Answer Notes Had sex in the past 12 months (vaginal, oral, or anal)? No Have you ever had a Sexually transmitted disease ? No Problems Problem Type SNOMED Code ICD Code Onset Dates Problem Status W/U Status Risk Notes Problem Postmenopausal atrophic vaginitis (25097444) Postmenopausal atrophic vaginitis (N95.2) Active confirmed Problem Age-related osteoporosis (002595369) Age-related osteoporosis without current pathological fracture (M81.0) Active confirmed Problem Urinary incontinence (676654159) Unspecified urinary incontinence (R32) Active confirmed Problem Essential hypertension (63077379) Essential (primary) hypertension (I10) Active confirmed Problem Osteoarthritis (678335892) Unspecified osteoarthritis, unspecified site (M19.90) Active confirmed Problem Chronic kidney disease (594921940) Chronic kidney disease, unspecified (N18.9) Active confirmed Plan Of Treatment Pending Test Test Name Order Date MAMMOGRAM, SCREENING 10/30/2020 MAMMOGRAM, SCREENING 12/30/2021 MAMMOGRAM, SCREENING 04/13/2023 BONE DENSITY 04/18/2024 MM Digital Mammo Screening 10/30/2020 MM Digital Mammo Screening 04/18/2024 MM Digital Mammo Screening 04/13/2023 MM Digital Mammo Screening 12/30/2021 Next Appt Details Provider Name:Sindi gomez, 08/21/2025 01:40:00 PM, [address], [address], [place], [address], Insurance Providers Payer Name Payer Address Payer Phone Subscriber Number Group Number Insured Name Patient Relationship to Insured Coverage Start Date Coverage End Date MEDICARE [address] [place] [id number] [phone] [id number] BEATA NASCIMENTO Self - patient is the insured MEDEX [address] [place] [address] [phone] [id number] BEATA NASCIMENTO Self - patient is the insured Medical (General) History Medical History History ICD Code Essential (primary) hypertension I10 Chronic kidney disease, unspecified N18. 9 Disorder of thyroid, unspecified E07.9 Cardiac murmur, unspecified R01.1 Unspecified osteoarthritis, unspecified site M19.90 Headache, unspecified R51.9 Disorder of bone density and structure, unspecified M85.9 Postmenopausal atrophic vaginitis N95.2 Age-related osteoporosis without current pathological fracture M81.0 Hormone replacement therapy Z79.890 Surgical History Surgery Date(Month/Year) Bilateral Tubal Ligation Bladder Sling Colonoscopy Defibulator Hysterectomy Hospitalization History Reason Date(Month/Year) See Surgical Hx 2 Vaginal Deliveries
== END 2025-05-08 14:51 | disposition home or self-care (01) ==
PROVIDERS: PCP Internal Medicine Rheumatology; Visit Provider Internal Medicine Rheumatology
DX: L40.50 Arthropathic psoriasis, unspecified (principal); I50.42 Chronic combined systolic (congestive) and diastolic (congestive) heart failure; M81.0 Age-related osteoporosis without current pathological fracture; M47.816 Spondylosis without myelopathy or radiculopathy, lumbar region; R25.2 Cramp and spasm; Z79.899 Other long term (current) drug therapy
CPT/HCPCS: 99204; G2211

== ENCOUNTER 2025-05-08 13:35 | Outpatient (REF) | payer MEDICARE, SELFPAY ==
--- OUTSIDE RECORDS SUMMARY | 2025-05-08 15:08 | XMS_ITS ---
Author Name [facility] Organization Unknown Care Team Organization Name Specialty Phone Email Start Date End Da te [facility] Termed, PROVIDER Primary Care 08/03/202204/26
[2025-05-08 17:34] LABS: MANUAL DIFF FLAG NO
[2025-05-08 17:45] LABS: Hematocrit 39.7 % (37.0-47.0); Hemoglobin 13.1 g/dl (12.0-16.0); Imm Gran Abs Auto 0.01 X10*3/uL (0.00-0.03); Imm Gran Pct Auto 0.2 % (0.0-0.4); Lymphocytes Absolute Auto 1.7 X10*3/uL (1.2-4.9); Mean Corpuscular HGB Conc 33.0 g/dl (31.0-35.0); Mean Corpuscular Hemoglobin 33.2 pg (27.0-33.0); Mean Corpuscular Volume 100.5 fL (80.0-98.0); NRBC Abs Auto 0.000 X10*3/uL (0.0-0.012); NRBC Pct Auto 0.0 /100WBC (0.0-0.2); Platelet Count 247 X10*3/uL (160-400); Red Blood Count 3.95 X10*6/uL (4.20-5.50); White Blood Count 5.3 X10*3/uL (4.8-10.8)
[2025-05-08 18:03] LABS: Alanine Aminotransferase 25 U/L (0-31); Albumin Level 4.1 g/dL (3.5-5.0); Aspartate Amino Transferase 29 U/L (5-31); Calcium 8.6 mg/dL (8.4-10.2); Estimated Glomerular Filt Rate > 60; Magnesium 2.3 mg/dL (1.6-2.6); Potassium 4.2 mmol/L (3.3-5.1); Sodium 139 mmol/L (135-145)
[2025-05-09 04:30] LABS: HBS Num1 0.67 mIU/mL (0-7.99); HBc Num1 0.07 S/CO (0.00-0.79); HBsAGNum1 0.42 S/CO (0.00-0.99); Hepatitis B Surface Antigen Negative (Negative); ~HepC Num1 0.50 S/CO (0.00-0.79); ~Hepatitis B Surface Antibody NONREACTIVE (Nonreactive); ~Hepatitis C Antibody Nonreactive (Nonreactive)
== END 2025-05-08 13:36 | disposition home or self-care (01) ==
LOC: HO.HKASLDS 13:35
PROVIDERS: PCP Internal Medicine Rheumatology; Visit Provider Internal Medicine Rheumatology
DX: R25.2 Cramp and spasm (principal); L40.50 Arthropathic psoriasis, unspecified; M86.9 Osteomyelitis, unspecified; K21.9 Gastro-esophageal reflux disease without esophagitis; I50.42 Chronic combined systolic (congestive) and diastolic (congestive) heart failure; M81.0 Age-related osteoporosis without current pathological fracture; M47.816 Spondylosis without myelopathy or radiculopathy, lumbar region; M79.641 Pain in right hand; M79.642 Pain in left hand; M54.50 Low back pain, unspecified; M79.674 Pain in right toe(s); M79.675 Pain in left toe(s); Z51.81 Encounter for therapeutic drug level monitoring; Z79.631 Long term (current) use of antimetabolite agent; Z79.899 Other long term (current) drug therapy; Z11.59 Encounter for screening for other viral diseases; Z72.89 Other problems related to lifestyle
CPT/HCPCS: 36415; 82040; 82306; 82310; 82565; 83735; 84100; 84132; 84295; 84450; 84460; 85025; 85652; 86140; 86704; 86706; 86803; 87340; 99202

== ENCOUNTER 2025-08-21 11:00 | Outpatient (RCR) | payer MEDICARE, SELFPAY ==
[2025-06-26 13:49] VITALS: BP 105/54; PULSE 76; RESP 16; TEMP 36.9; O2SAT 99
[2025-08-21 10:55] VITALS: BP 110/57; PULSE 18; RESP 18; TEMP 36.6
== END 2025-09-05 14:54 | disposition home or self-care (01) ==
LOC: HO.INF 11:00
PROVIDERS: PCP Internal Medicine; Visit Provider Internal Medicine Rheumatology
DX: L40.50 Arthropathic psoriasis, unspecified (principal); Z79.899 Other long term (current) drug therapy
CPT/HCPCS: 96365; J1602

== ENCOUNTER 2025-08-28 09:14 | Outpatient (REF) | payer MEDICARE, SELFPAY ==
[2025-08-28 13:16] LABS: MANUAL DIFF FLAG NO
[2025-08-28 13:23] LABS: Hematocrit 41.3 % (37.0-47.0); Hemoglobin 13.5 g/dl (12.0-16.0); Imm Gran Abs Auto 0.01 X10*3/uL (0.00-0.03); Imm Gran Pct Auto 0.2 % (0.0-0.4); Lymphocytes Absolute Auto 1.6 X10*3/uL (1.2-4.9); Mean Corpuscular HGB Conc 32.7 g/dl (31.0-35.0); Mean Corpuscular Hemoglobin 32.6 pg (27.0-33.0); Mean Corpuscular Volume 99.8 fL (80.0-98.0); NRBC Abs Auto 0.000 X10*3/uL (0.0-0.012); NRBC Pct Auto 0.0 /100WBC (0.0-0.2); Platelet Count 245 X10*3/uL (160-400); Red Blood Count 4.14 X10*6/uL (4.20-5.50); White Blood Count 4.6 X10*3/uL (4.8-10.8)
[2025-08-28 14:04] LABS: Erythrocyte Sedimentation Rate 8 MM/HR (0-20)
[2025-08-28 14:07] LABS: Alanine Aminotransferase 16 U/L (0-31); Aspartate Amino Transferase 24 U/L (5-31); Estimated Glomerular Filt Rate > 60
== END 2025-08-28 09:15 | disposition home or self-care (01) ==
LOC: HO.HKASLDS 09:14
PROVIDERS: PCP Internal Medicine Rheumatology; Visit Provider Internal Medicine Rheumatology
DX: L40.50 Arthropathic psoriasis, unspecified (principal); Z79.899 Other long term (current) drug therapy; I50.42 Chronic combined systolic (congestive) and diastolic (congestive) heart failure; M81.0 Age-related osteoporosis without current pathological fracture
CPT/HCPCS: 36415; 82565; 84450; 84460; 85025; 85652; 86140; 99212

== ENCOUNTER 2025-08-28 09:14 | Outpatient (AMB) | payer MEDICARE, SELFPAY ==
--- NOTE | 2025-08-28 09:18 | MHC.OFFVIS ---
Vital Signs 08/28/25 09:30 Height 5 ft 5 in Weight 140 lb BMI 23.3 BP 80/60 L Blood Pressure Location Rt brachial Position Sitting Pulse 67 Pulse Source Pulse Oximeter Pulse Oximetry (%) 97 Oxygen Delivery Method Room Air Intake Visit Reasons: 3 Months Intake Note: Patient presents today for arthritis. Accompanied by: Self / Same As Patient Allergies cyclosporine (From Restasis) Allergy (Mild, Verified 08/28/25 09:19) eye burning dapagliflozin (From Farxiga) Allergy (Mild, Verified 08/28/25 09:19) Nausea erythromycin base Allergy (Mild, Verified 08/28/25 09:19) Nausea semaglutide (From Ozempic) Allergy (Mild, Verified 08/28/25 09:19) Nausea valsartan (From Diovan) Allergy (Mild, Verified 08/28/25 09:19) Cough lisonopril Allergy (Mild, Uncoded 05/08/25 13:48) Cough meibo Allergy (Mild, Uncoded 05/08/25 13:48) eye running HPI HPI 3 Months: Details: MS all day. Toes are swollen. She has pain in her right 2nd toe when she bends it. She doesn't want to walk due to pain. Shoulders are on fire. Hands swell. Hips and knees are hurting. No recent infection. Simponia aria infusion last week did not provide benefit. Physical Exam Vital Signs: Last Vital Signs Pulse 67 08/28/25 09:30 BP 80/60 L 08/28/25 09:30 Pulse Ox 97 08/28/25 09:30 Oxygen Delivery Method Room Air 08/28/25 09:30 BMI result Body Mass Index 23.3 Const Other: General: Comfortable CVS: RRR Respiratory: clear to auscultation bilaterally. Good respiratory effort Skin: No lesions seen MSK: Tender right 5th MCP. Volar subluxation of bilateral 2nd and 3rd MCPs with ulnar deviation. Dactylitis has resolved. No MTP tenderness. No ankle tenderness. Normal range motion of upper extremities and lower extremities. Tender left knee. Assessment & Plan Assessment & Plan (1) Psoriatic arthritis: Comment: Simponi Aria has resolved dactylitis but she continues to have polyarthralgias and intermittent swelling of hands. She has failed treatment with Simponi Aria. Debo was approved. Rheumatology history: Presenting with dactylitis right 2nd to 4th toe with enthesitis (plantar fasciitis and trochanteric bursitis). HLA B27 negative. Dactylitis resolve with diclofenac gel initially but became recurrent. Contraindication to oral NSAIDs due to CHF. Otezla caused worsening GERD. Cosentyx-patient could not afford high co-pay 1300 dollars a month. Ustekinumab November 08, 2019 to March 15, 2020 insurance stopped coverage. Xeljanz July 15, 2020 to September 14, 2020 ($ 1600 monthly cost, patient triage assistant program denied). Remicade January 13, 2021 to October 15, 2021 discontinued due to recurrent UTIs. Simponi January 2022-she is also on low-dose methotrexate. TB 06/2024 negative [facility] records. Code(s): L40.50 - Arthropathic psoriasis, unspecified Category: Medical Plan: Labs for drug monitoring on high-risk medication ordered Start Taltz 160 mg once for induction followed by 80 mg every 4 weeks for maintenance. She will need nurse teaching visit for 1st dose administration in the office and labs 1 month after starting Taltz with CBC, creatinine, AST, ALT Discontinue Simponmich Michael Return to clinic in 3 months (2) Other skilled nursing (current) drug therapy: Code(s): Z79.899 - Other manager long term care (current) drug therapy Category: Medical Plan: See above (3) Chronic combined systolic and diastolic CHF (congestive heart failure): Comment: Stable Code(s): I50.42 - Chronic combined systolic (congestive) and diastolic (congestive) heart failure Category: Medical Plan: Follow up with Cardiology (4) Osteoporosis: Comment: With fragility fracture right shoulder. She has history of GERD. She received Reclast 10/30/2019, October 2020, November 2021, November 2022, November 2023. Code(s): M81.0 - Age-related osteoporosis without current pathological fracture Category: Medical Qualifiers: Osteoporosis type: age-related Presence of current pathological fracture: without current pathological fracture Qualified Code(s): M81.0 - Age-related osteoporosis without current pathological fracture Plan: Continue calcium and vitamin-D supplement She had bone density on 06/07/2025. I am requesting report. Orders: Orders Aspartate Amino Transferase Today Z79.899 - Other skilled nursing (current) drug therapy C Reactive Protein Today Z79.89 - Other manager long term care (current) drug therapy Complete Blood Count Auto Diff Today Z79.89 - Other skilled nursing (current) drug therapy Alanine Aminotransferase Today Z79.89 - Other manager long term care (current) drug therapy Creatinine Today Z79.89 - Other skilled nursing (current) drug therapy Erythrocyte Sedimentation Rate Today Z79.89 - Other skilled nursing (current) drug therapy Medications: New ixekizumab (Taltz Autoinjector) Inject 4 weeks after first dose then every 4 weeks 80 mg subcut Q4W 1 mL 2RF methotrexate sodium 10 mg (0.4 mL) subcut QWEEK 2 mL 2RF ixekizumab (Taltz Autoinjector) Induction dose. First dose administration in office with nurse visit. 160 mg (2 mL) subcut ONCE 2 mL 0RF Refilled syringe with needle (BD SafetyGlide Tuberculin Regular Bevel) As directed 100 ea 0RF Coding Level of Care Code Est Pt Level 4 (88717) Complex visit Add On G2211 Diagnoses Psoriatic arthritis L40.50 Other manager long term care (current) drug therapy Z79.89 Chronic combined systolic and diastolic CHF (congestive heart failure) I50.42 Age-related osteoporosis without current pathological fracture M81.0 Osteoporosis type: age-related Presence of current pathological fracture: without current pathological fracture
[2025-08-28 09:30] VITALS: BP 80/60; PULSE 67; O2SAT 97; BMI 23.3
--- OUTSIDE RECORDS SUMMARY | 2025-08-28 09:58 | XMS_ITS | Encounter Summary ---
Author Organization [facility] Address [address] [place] [address] Care Team Providers Care Meat Hostess Name Role Phone Aramis Acosta MD Primary Care Provider [phone] Encounter Details Date Type Department Care Team (Late st Contact Info) Description 07/04/2025 Results Follow-Up [facility] - [address] [facility] [address] [place] [id number] Aiyln Tate PA [address] [place] [address] [address] [place] [phone] Social History Tobacco Use Types Packs/Day Years [...] on file documented as of this encounter Plan of Treatment Upcoming Encounters Date Type Department Care Team (Late st Contact Info) Description 10/23/2025 9:15 AM EST Ancillary Procedure [facility] - [address] [place] [phone] documented as of this encounter Visit Diagnoses Not on filedocumented in this encounter Care Teams Meat Hostess Relationship Specialty Start Date End Date Aramis Acosta MD [facility] [place] [address] PCP - General Internal Medicine 01/09/25 documented as of this encounter
--- OUTSIDE RECORDS SUMMARY | 2025-08-28 09:59 | XMS_ITS | Clinical Summary ---
Author Organization [facility] Address [address] [place] [address] Care Team Providers Care Audiovisual Aids Technician Name Role Phone Miguelina Gaitan MD Primary [...] Evaluation 1968 Colon Cancer Screening (Colonoscopy) 1995 Shingrix-Zoster Vaccine (1 of 2) 2000 Fall [...] age to complete this topic Care Teams Audiovisual Aids Technician Relationship Specialty Start Date End Date Miguelina Gaitan MD [address] [phone] PCP - General Internal Medicine 08/29/18
--- OUTSIDE RECORDS SUMMARY | 2025-08-28 09:59 | XMS_ITS | Clinical Summary ---
Author Organization [facility] Address [address] [place] [address] Phone Care Team Providers Care Commercial Loan Assistant Name Role Phone Aramis Acosta MD Primary Care Provider [phone] Allergies Active Allergy Reactions Criticality Noted Date Comments Cyclosporine Itching Low 04/16/2016 Other Reaction(s): Rash/Dermatitis Other reaction(s): Other (See Comments) Erythromycin Nausea And Vomiting 12/10/2009 Hydrochlorothiazide 02/18/2021 Lisinopril 02/09/2010 Other Reaction(s): OTHER Cough Valsartan 09/28/2018 Valsartan-Hydrochlorothiazid e 08/13/2016 cough Medications estradioL (ESTRACE) 0.5 mg tablet TAKE 1 TABLET BY MOUTH ONCE DAILY AT BEDTIME 02/17/2022 Active venlafaxine (EFFEXOR) 75 mg tablet Take 1 tablet (75 mg total) by mouth 1 (one) time each day. 01/12/2022 Active butalbital-acet aminophen-caffe ine (FIORICET, ESGIC) 50-325-40 mg per tablet Take 1-2 Tablets by mouth every 6 hours as needed for Headaches. 01/12/2022 Active UNABLE TO FIND Fish Oil-Cholecalc iferol (Fish Oil/D3 Adult Gummies) 184-250 MG-UNIT Chew Tab Take by mouth. Active dextran 70-hypromellose (ARTIFICIAL TEARS) 0.1-0.3 % ophthalmic solution apply to the eye. Active betamethasone valerate (VALISONE) 0.1 % lotion 09/07/2017 Active esomeprazole (NexIUM) 40 mg packet Take 40 mg by mouth every morning (before breakfast). Active aspirin 81 mg EC tablet 81 MG PO NOW 11/13/2009 Active calcium carbonate/vitam in D3 (CALCIUM + D ORAL) Take 600 mg by mouth daily. 11/09/2007 Active furosemide (LASIX) 20 mg tablet Take 1 tablet (20 mg total) by mouth every other day. 45 each 2 01/09/2025 Active spironolactone (ALDACTONE) 25 mg tablet Take 1 tablet by mouth once daily 90 tablet 1 03/27/2025 Active Golimumab (Simponi ARIA) 12.5 mg/mL solution injection Infuse 2 mg/kg into a venous catheter once every eight weeks. Infusion 02/04/2025 Active folic acid (FOLVITE) 1 mg tablet Take 1 tablet (1,000 mcg total) by mouth 1 (one) time each day. 06/09/2025 Active methotrexate sodium 25 mg/mL solution injection Inject into the shoulder, thigh, or buttocks every 7 (seven) days 05/28/2025 Active Entresto 49-51 mg per tablet Take 1 tablet by mouth 2 (two) times a day. 04/15/2025 Active carvediloL (COREG) 6.25 mg tablet Take 1 tablet (6.25 mg total) by mouth 2 (two) times a day with meals. 180 each 3 06/27/2025 06/27/20 26 Active rosuvastatin (CRESTOR) 5 mg tablet Take 1 tablet (5 mg total) by mouth every other day. 90 each 1 07/19/2025 07/19/20 26 Active Active Problems Problem Noted Date Diagnosed Date Dizziness 07/19/2025 Assessment & Plan (07/19/2025 12:44 PM EDT): Will update carotid ultrasound for completeness. Patient has been asked to change positions slowly. Encounter for adjustment and management of automatic implantable cardiac defibrillator 07/04/2025 Elective replacement indicat ed for implantable cardioverter-defibrillator (ICD) 07/04/2025 ICD (implantable cardioverte r-defibrillator) battery depletion 07/01/2025 Coronary artery disease of n ative artery of [place] heart with stable angina pectoris ([facility] V24) 06/27/2025 Assessment & Plan (07/19/2025 12:43 PM EDT): New or worsening anginal symptoms. Please continue on the baby aspirin, rosuvastatin 5 mg p.o. every other day as can be adding to her regimen in addition to the carvedilol. 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 V24, [facility] V28) 04/22/2021 Overview (09/20/2024): Last Assessment & Plan: She has a [...] continue to monitor. Again electrolytes are stable Assessment & Plan (07/19/2025 12:41 PM EDT): Has prophylactic ICD in place. Most recent nuclear stress test did not show any evidence of ischemia. Continued utilize beta-blockade. Fatigue 04/22/2021 HFrEF (heart failure with re duced ejection fraction) (CMS/HCC V24, CMS/HCC V28) 12/31/2020 AICD (automatic cardioverter/defibrillator) pres ent 02/05/2020 Assessment & Plan (07/19/2025 12:38 PM EDT): Patient is getting device generator replaced on 07/26/2025 Psoriasis 08/28/2018 Chronic foot pain 08/28/2018 Multinodular goiter 10/08/2014 Overview (09/20/2024): FNA 10/04/14- 3 Nodules Benign Hearing loss 03/11/2014 Depression 08/10/2013 Colon polyp 01/03/2013 Overview (09/20/2024): 01/06 Dr Ash; EGD normal Mild sleep apnea 06/23/2011 Overview (09/20/2024): No treatment advised Onychomycosis 03/25/2011 Dyslipidemia 05/20/2010 Overview (09/20/2024): Last Assessment & Plan: The patient was [...] not done so by her follow-up visit. Assessment & Plan (07/19/2025 12:42 PM EDT): Curiously, she was at some point taken off her rosuvastatin even though she has documented coronary artery disease, most recent cath in 2019 revealed 80% stenosis of the LAD. I am going to be putting her back on rosuvastatin 5 mg p.o every other day, as she reports she may have had muscle cramping on this medication before. She will reach out if she develops any side effects. Will update a lipid panel in 3 months Idiopathic cardiomyopathy (CMS/HCC V24, CMS/HCC V28) 12/20/2009 Overview (09/20/2024): 12/03 EF approx 25%; 09/04 similar; 11/[address] Tan 06/2019 EF 25-30%, similar 2019 Referred to advanced heart failure and transplant clinic at [facility] 07/2019 Stable EF 03/2021 Last Assessment [...] of any extreme changes in either direction. Assessment & Plan (07/19/2025 12:41 PM EDT): Patient appears euvolemic. She does exercise regularly and stays active throughout the day. She is noting on increase in dry cough when her Entresto was increased. I am going to have her trial decreasing the Entresto after she gets the generator changed in her AICD. Should continue on the spironolactone, beta-blockade, cannot tolerate Farxiga due to chronic UTI. Continue to check her weights daily. Continue to limit sodium consumption. GERD (gastroesophageal reflux disease) 0 Allergic rhinitis 11/09/2007 Encounters Date Type Department Care Team Description 08/16/2025 Telephone [facility] - [facility] [address] [facility] [address] [place] [address] Johnson Lundberg MD 2025 5:15 PM EST Ancillary Procedure [facility] - [address] [place] [address] 07/30/2025 11:00 AM EST Ancillary Procedure [facility] - [address] [place] [address] 07/26/2025 12:00 PM EDT - 07/26/2025 1:00 PM EDT Surgery [facility] [address] [place] [address] Johnson Lundberg MD ICD battery change [21069 (CPT )] 07/26/2025 10:51 AM EDT - 07/26/2025 2:13 PM EDT Hospital Encounter [facility] [address] [place] [address] Johnson Lundberg MD Ventricular tachycardia (CMS/HCC V24, CMS/HCC V28) (Primary Dx); Encounter for adjustment and management of automatic implantable cardiac defibrillator; Elective replacement indicated for implantable cardioverter-defibrill ator (ICD) Discharge Disposition: Home or Self Care 07/19/2025 9:10 AM EDT Office Visit [facility] - [address] [place] [address] Vince Escobedo NP Coronary artery disease of [place] artery of [place] heart with stable angina pectoris (CMS/HCC V24) (Primary Dx); HFrEF (heart failure with reduced ejection fraction) (CMS/HCC V24, CMS/HCC V28); Hypertension, unspecified type; Idiopathic cardiomyopathy (CMS/HCC V24, CMS/HCC V28); VT (ventricular tachycardia) (CMS/HCC V24, CMS/HCC V28); Dizziness; AICD (automatic cardioverter/defibrill ator) present; Dyslipidemia 07/04/2025 Telephone [facility] - [address] [place] [address] Johnson Lundberg MD 07/04/2025 Results Follow-Up [facility] - [address] [place] [address] Ailyn Tate PA 07/03/2025 1:30 PM EDT Ancillary Procedure [facility] - [address] [place] [address] VT (ventricular tachycardia) (CMS/HCC V24, CMS/HCC V28); Coronary artery disease of [place] artery of [place] heart with stable angina pectoris (CMS/HCC V24); Chest pain at rest 06/27/2025 11:10 AM EDT Consult [facility] - [address] [place] [address] Ailyn Tate PA VT (ventricular tachycardia) (CMS/HCC V24, CMS/HCC V28) (Primary Dx); Coronary artery disease of [place] artery of [place] heart with stable angina pectoris (CMS/HCC V24); Chest pain at rest; ICD (implantable cardioverter-defibrill ator) battery depletion 06/11/2025 11:30 AM EDT Ancillary Procedure [facility] - [address] [place] [address] 06/11/2025 Telephone [facility] - [address] [place] [address] Jacey Montoya MA from Last 3 Months Immunizations Immunization Administration Dates Next Due Influenza trivalent, with pr eservative (Fluzone; Afluria) 6mo and older 05/30/2020,07/12/2016 Pneumococcal polysaccharide 23 valent (Pneumovax 23) 2yo and older 06/18/2021 Tdap Tetanus diptheria acell ular pertussis (Boostrix; Adacel) 7yo and older 05/22/2014 Surgical History Surgery Date Site/Laterality Comments OTHER SURGICAL HISTORY 11/06 PROCEDURE: ---- OTHER ----; COMMENT: ICD TUBAL LIGATION PROCEDURE: HISTORICAL TUBAL LIGATION OTHER SURGICAL HISTORY PROCEDURE: ---- OTHER ----; COMMENT: throat polyps, benign HYSTERECTOMY 04/17/2018 PROCEDURE: HISTORICAL HYSTERECTOMY; COMMENT: with sling, rectocele repair Medical History Medical History Date Comments Allergic rhinitis DX:Allergic rh initis Hypertension DX:Hypertension Uvaldo's disease DX:Uvaldo 's disease Chronic low back pain DX:Chronic low back pain AICD (automatic cardioverter/defibrillator) pres ent Family History Medical History Relation Name Comments Other: spina bifida Brother 1 Prostate cancer Father Hypertension Maternal Grandfather Stroke Mother Coronary artery disease Other uncl e Heart failure Sister 1 Other: afib Sister 1 Other: lupus Sister 1 Diabetes Neg Hx Relation Name Status Comments Brother 1 Brother 2 Alive Father Maternal Grandfather Mother Other Sister 1 Sister 2 Alive Sister 3 Alive Social History Tobacco Use Types Packs/Day Years Used Date Smoking Tobacco: Former Cigarettes Smokeless Tobacco: Never Tobacco Cessation:Counseling Given: Not Answered Alcohol Use Standard Drinks/Week Comments Yes 4.2 (1 standard drink = 0.6 oz p ure alcohol) Comments Unknown Sex and Gender Information Value Date Recorded Sex Assigned at Not on file Legal Sex Female 1:29 PM EST Gender Identity Not on file Sexual Orientation Not on file Obstetrics History Last Filed Vital Signs Vital Sign Reading Time Taken Comments Blood Pressure 95/62 07/26/2025 1:30 PM EDT Pulse 67 07/26/2025 1:30 PM EDT Temperature 36.4 C (97.5 F) 07/26/2025 11:09 AM EDT Respiratory Rate 18 07/26/2025 1:30 PM EDT Oxygen Saturation 97% 07/26/2025 1:30 PM EDT Inhaled Oxygen Concentration - - Weight 64 kg (141 lb) 07/26/2025 11:09 AM EDT Height 166 cm (5' 5.35 ) 07/26/2025 11:09 AM EDT Body Mass Index 23.21 07/26/2025 11:09 AM EDT Plan of Treatment Upcoming Encounters Date Type Department Care Team (Late st Contact Info) Description 10/23/2025 9:15 AM EST Ancillary Procedure [facility] - [address] [facility] [address] [place] [address] Health Maintenance Due Date Last Done Comments Colorectal Cancer Screening: Colonoscopy 1950 Zoster Vaccines (2 of 2) 11/27/2020 10/02/2020 Falls Risk Assessment 09/04/2022 Medicare Annual Wellness Visit 09/04/2022 Osteoporosis Screening (Bone Density Screening) 09/04/2022 Social Influencers of Health Screening 09/04/2022 Depression Screening 09/26/2024 COVID-19 Vaccine ( season) 2025 10/13/2024, 08/21/2023, 09/23/2022, Additional history exists RSV Immunization Adult Patients (1 - 1-dose 75+ series) 2025 Hypertension/CHF/CAD Annual BMP Blood Test 07/17/2026 07/17/2025, 10/07/2021 Cholesterol Screening (Lipid Panel) 10/07/2026 10/07/2021 DTaP,Tdap,and Td Vaccines (3 - Td or Tdap) 05/16/2035 05/16/2025, 05/22/2014 Hepatitis C Screening Completed 08/20/2013 Pneumococcal Vaccine: 50+ Years Completed 11/25/2023, 06/18/2021 Influenza Vaccine Completed 08/03/2025, , 06/07/2023, Additional history exists HIB Vaccines Aged Out No longer eligi ble based on patient's age to complete this topic HPV Vaccines Aged Out No longer eligi ble based on patient's age to complete this topic Hepatitis A Vaccines Aged Out No long er eligible based on patient's age to complete this topic Hepatitis B Vaccines Aged Out No long er eligible based on patient's age to complete this topic IPV Vaccines Aged Out No longer eligi ble based on patient's age to complete this topic MMR Vaccines Aged Out No longer eligi ble based on patient's age to complete this topic Meningococcal ACWY Vaccine Aged Out N o longer eligible based on patient's age to complete this topic Meningococcal B Vaccine Aged Out No l onger eligible based on patient's age to complete this topic RSV Immunization Patients Under 20 months Aged Out No longer eligible based on patient's age to complete this topic Varicella Vaccines Aged Out No longer eligible based on patient's age to complete this topic Medical Devices Implanted Type Area Customer Associate Device Identifier Shelf Expiration Date Model / Serial / Lot Icd [employer] Vr - [id number] - [id number] Implanted:Qty: 1 on 07/26/2025 by Johnson Lundberg MD at [facility] Cardiac RESIDENTIAL MANAGER-D ICD Left: Chest Wall [employer] MGMT [id number] 12/21/2026 D120 / [id number] / Bsci-Crm [id number] Implanted:0204/2011 (Quantity not on file) Cardiac ICD [employer] MG[employer] [id number] / [id number] / Procedures Procedure Name Priority Date/Time Associated Diagnosis Comments CARDIAC DEVICE CHECK- REMOTE- MURJ Routine 2025 5:11 PM EST CARDIAC DEVICE CHECK- REMOTE- MURJ Routine 07/30/2025 10:55 AM EST ICD BATTERY CHANGE Routine 07/26/2025 12 :51 PM EDT Encounter for adjustment and management of automatic implantable cardiac defibrillator Elective replacement indicated for implantable cardioverter-defibri llator (ICD) PROTHROMBIN TIME WITH INR Routine 07/17/2025 11:22 AM EDT COMPLETE BLOOD COUNT Routine 07/17/2025 11:22 AM EDT BASIC METABOLIC PANEL Routine 07/17/2025 11:22 AM EDT NM EXERCISE STRESS TEST W/ MYOCARDIAL PERFUSION Routine 07/03/2025 4:13 PM EDT VT (ventricular tachycardia) (CMS/HCC V24, CMS/HCC V28) Coronary artery disease of [place] artery of [place] heart with stable angina pectoris (CMS/HCC V24) Chest pain at rest ECG 12-LEAD Routine 06/27/2025 2:49 PM EDT VT (ventricular tachycardia) (CMS/HCC V24, CMS/HCC V28) CARDIAC DEVICE CHECK- REMOTE- MURJ Routine 06/11/2025 11:25 AM EDT LIPID PANEL Routine 10/07/2021 HEPATITIS C SCREENING Routine 08/20/2013 from Last 3 Months or Most Recently Relevant to Health Maintenance Results * Cardiac device check - Remote- MURJ (2025 5:11 PM EST) Only the most recent of3 resultswithin the time period is included. Date Time Interrogation Session [id number] CV DEVICE CHECK Type Interrogation Session Remote Scheduled CV DEVICE CHECK Implantable Pulse Generator Customer Associate BSX CV DEVICE CHECK Implantable Pulse Generator Type ICD CV DEVICE CHECK Implantable Pulse Generator Model D120 CV DEVICE CHECK Implantable Pulse Generator Serial Number [id number] CV DEVICE CHECK Implantable Pulse Generator Implant Date 20250726 CV DEVICE CHECK Battery Remaining Percentage 100.00 CV DEVICE CHECK Battery Remaining Longevity 180.0 CV DEVICE CHECK Battery Status Beginning of Service CV DEVICE CHECK Capacitor Charge Time 9.300 CV DEVICE CHECK Benjamin Statistic RV Percent Paced 0.00 CV DEVICE CHECK Lead Channel Sensing Intrinsic Amplitude 16.900 CV DEVICE CHECK Lead Channel Setting Sensing Sensitivity 0.60 CV DEVICE CHECK Lead Channel Impedance Value 561 CV DEVICE CHECK Lead Channel RV Pacing Threshold Date 2025-08-06 CV DEVICE CHECK Lead Channel Setting Pacing Amplitude 2.000 CV DEVICE CHECK Lead Channel Setting Pacing Pulse Width 0.5 CV DEVICE CHECK Benjamin Setting Mode (NBG Code) VVI CV DEVICE CHECK Benjamin Setting Lower Rate Limit 40 CV DEVICE CHECK Therapy Statistic Recent Shocks Delivered 0 CV DEVICE CHECK Therapy Statistic Recent Shocks Aborted 0 CV DEVICE CHECK Therapy Statistic Recent ATP Delivered 0 CV DEVICE CHECK Shock Measured Impedance 55 CV DEVICE CHECK Zone Setting Type Category VF CV DEVICE CHECK Rate 200 CV DEVICE CHECK Therapies Burst,41J,41J,41J x 6 CV DEVICE CHECK Zone Setting Status On CV DEVICE CHECK Zone ID 1 CV DEVICE CHECK Zone Setting Type Category VT CV DEVICE CHECK Rate 160 CV DEVICE CHECK Therapies 2 x Burst,Ramp,41J,41J ,41J x 4 CV DEVICE CHECK Zone Setting Status On CV DEVICE CHECK Zone ID 2 CV DEVICE CHECK Date of Service 2025-08-14 CV DEVICE CHECK Anatomical Region Laterality Modality Device Interroga tion 08/07/2025 3:11 AM EST Impressions 2025 5:10 PM EST Normal Remote: No Events Initial Transmission * Normal Device Function * Alerts or events: None * Battery: Battery is at 100%, 15.00 yrs * Sensing, impedance and thresholds reviewed * Programmed parameters reviewed * Presenting rhythm reviewed * Heart Rate Histograms reviewed * No significant changes noted Heart Failure Diagnostic: Stable * Heart failure diagnostics assessed through the device * Status: Stable * No overt HF present Narrative Procedure Note Johnson Lundberg MD - 2025 IMPRESSION: Normal Remote: No Events Initial Transmission * Normal Device Function * Alerts or events: None * Battery: Battery is at 100%, 15.00 yrs * Sensing, impedance and thresholds reviewed * Programmed parameters reviewed * Presenting rhythm reviewed * Heart Rate Histograms reviewed * No significant changes noted Heart Failure Diagnostic: Stable * Heart failure diagnostics assessed through the device * Status: Stable * No overt HF present Johnson Lundberg MD CV IMPLANTABLE CARDIAC DEVICE PROCEDURES Final Result * ICD BATTERY CHANGE (07/26/2025 12:51 PM EDT) Anatomical Region Laterality Modality X-Ray Angiograph y Narrative 07/29/2025 7:09 AM EST Successful dual-chamber ICD generator replacement Clinical Background This 74-year-old female has a history of cardiomyopathy, ventricular tachycardia and now has an ICD that has reached elective replacement indicators. This is secondary protection against ventricular tachycardia. Procedure Details After dinner and informed consent the patient was brought to the EP laboratory in the fasting state and was moderately sedated by nursing staff using small doses of Versed and fentanyl. Please see nursing flowsheets for details and hemodynamics. After the usual sterile prep and local anesthesia with 1% lidocaine I made a 3 cm incision over the left chest. Please a PlasmaBlade I accessed the pocket remove the device and freed up the leads. There is a very calcified pocket noted. The lead was detached from the existing header and placed into the new header. A port plug was placed in the SVC port. The device was then placed back into the pre-existing pocket which was irrigated with antibiotics and then the incision was closed with 2.0 v-loc suture and surgical glue. Device testing showed similar capture threshold sensing and lead impedances. It was programmed similarly to the initial presentation. The patient was returned recovery in stable condition with no immediate complications. Johnson Lundberg MD CV ELECTROPHYSIOLOGY PROCEDURE S Final Result * Basic metabolic panel (07/17/2025 11:22 AM EDT) [facility] Glucose 71 70 - 99 mg/dL [facility] Blood Urea Nitrogen (BUN) 21 8 - 27 mg/dL [facility] Creatinine 0.81 0.57 - 1.00 mg/dL [facility] 1 eGFR 76 >59 mL/min/1.7 3 [facility] BUN/Creatinine Ratio 26 12 - 28 [facility] 1 Sodium 138 134 - 144 mmol/L [facility] Potassium 5.1 3.5 - 5.2 mmol/L [facility] 1 Chloride 103 96 - 106 mmol/L [facility] 1 Carbon Dioxide 25 20 - 29 mmol/L [facility] 1 Anion Gap 10.0 10.0 - 18.0 mmol/L [facility] 1 Calcium 9.3 8.7 - 10.3 mg/dL [facility] 1 07/17/2025 11:2 2 AM EDT 07/17/2025 Narrative [facility] 1 - 07/18/2025 4:06 AM EDT Performed at: [facility] [id number] Contact And Service Clerks Supervisor: Madyson Andres MD, Phone: [phone] us Johnson Lundberg MD LAB BLOOD ORDERABLES Final Res ult [facility] * Prothrombin time with INR (07/17/2025 11:22 AM EDT) [facility] International Normalized Ratio (INR) 1.1 0.9 - 1.2 [facility] Comment: Reference interval is for non-anticoagulated patients. Suggested INR therapeutic range for Vitamin K antagonist therapy: Standard Dose (moderate intensity therapeutic range): 2.0 - 3.0 Higher intensity therapeutic range 2.5 - 3.5 Prothrombin Time 11.1 9.1 - 12.0 sec [facility] 1 07/17/2025 11:2 2 AM EDT 07/17/2025 Narrative [facility] 1 - 07/18/2025 4:06 AM EDT Performed at: 01 - [facility] [address] [id number] Contact And Service Clerks Supervisor: Madyson Andres MD, Phone: [phone] us Johnson Lundberg MD LAB BLOOD ORDERABLES Final Res ult Performing Organization Address [facility] Co de Phone Number [facility] 1 * (ABNORMAL) Complete blood count (07/17/2025 11:22 AM EDT) Pathologist [facility] WBC 5.2 3.4 - 10.8 x10E3/uL [facility] RBC 4.12 3.77 - 5.28 x10E6/uL [facility] 1 Hemoglobin 13.9 11.1 - 15.9 g/dL [facility] 1 Hematocrit 42.9 34.0 - 46.6 % [facility] 1 MCV 104(H) 79 - 97 fL [facility] 1 MCH 33.7(H) 26.6 - 33.0 pg [facility] 1 MCHC 32.4 31.5 - 35.7 g/dL [facility] 1 RDW 12.9 11.7 - 15.4 % [facility] 1 Platelets 233 150 - 450 x10E3/uL [facility] 1 07/17/2025 11:2 2 AM EDT 07/17/2025 Narrative [facility] 1 - 07/18/2025 4:06 AM EDT Performed at: - [facility] [address] [id number] Contact And Service Clerks Supervisor: Madyson Andres MD, Phone: [phone] us Johnson Lundberg MD LAB BLOOD ORDERABLES Final Res ult Performing Organization Address [facility]/ZIP Co de Phone Number [facility] 1 * NM EXERCISE STRESS TEST W/ MYOCARDIAL PERFUSION (07/03/2025 4:13 PM EDT) Exercise/injec tion duration (min) 6 CV PACS STRESS Exercise/injec tion duration (sec) 46 CV PACS STRESS Peak SBP 130 mmHg CV PACS STRESS Peak DBP 60 mmHg CV PACS STRESS Peak HR 129 bpm CV PACS STRESS Baseline HR 67 bpm CV PACS STRESS Baseline SBP 94 mmHg CV PACS STRESS Baseline DBP 62 mmHg CV PACS STRESS Estimated workload 8.6 METS CV PACS STRESS Percent HR 88 % CV PACS STRESS Rate Pressure Product 16,770.0 mmHg*bpm CV PACS STRESS Target HR 124 bpm CV PACS STRESS TID 1.12 CV PACS STRESS Nuc Stress EF 28 % CV PAC S STRESS Nuc Rest EF 28 % CV PACS STRESS BSA 1.71 m2 CV PACS STRESS Angina Index 0 CV PACS STRESS Anatomical Region Laterality Modality Nuclear Medicine 07/03/2025 2:56 PM EDT 07/03/2025 3:33 PM EDT Narrative 07/03/2025 8:27 PM EDT Exercise stress test was performed. Patient reported no symptoms during the stress test. Exercise capacity was average. Normal blood pressure response. The study is negative for evidence of ischemia and infarction. LV perfusion is equivocal. 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 No definitive ischemia or infarct identified Abnormal left ventricular function post-stress. Global function is severely reduced. Stress ejection fraction is 28%. Stress: Overall, the patient's exercise capacity was average. Total stress time was 6 min and 46 sec. The patient reported no symptoms during the stress test. Stress Findings A Lobito protocol stress test was performed. Overall, the patient's exercise capacity was average. Total stress time was 6 min and 46 sec. The patient experienced no angina during the test. The test was stopped because the patient experienced leg fatigue. The patient's hemodynamic response was adequate for diagnosis. Blood pressure demonstrated a normal response. Heart rate demonstrated a normal response. The patient reported no symptoms during the stress test. ECG 74 yo female with HFREF mixed ischemic and nonischemic, CAD, NSVT and single chamber ICD with atypical and typical chest discomfort. The ECG shows normal sinus rhythm with poor R wave progression across the precordial leads. Transient QRS widening noted with regadenoson. Occ PVCs. No sustained arrhythmia. Nuclear Study Quality Study technique: MPI, SPECT, multi, rest and stress, 1 day. Overall image quality is excellent. CT attenuation correction was utilized. There are no artifacts present. There was no increased lung uptake of the radiopharmaceutical. No radiopharmaceutical dose was extravasated. The time from injection to rest imaging is 50 mins. The time from injection to stress imaging is 30 mins. Stress Function Comments Left ventricular systolic function post-stress is abnormal. Global function is severely reduced. Stress ejection fraction is 28%. Rest Function Comments Left ventricular function at rest was abnormal. Resting ejection fraction was 28%. Global function is severely reduced. Stress Combined Conclusion The study is negative for evidence of ischemia and infarction. Patient's left ventricle is severely dilated. There is patchy uptake of tracer with no definitive areas of ischemia or infarct. This is indicative of a dilated cardiomyopathy probably nonischemic CT Findings No definitive coronary calcification identified. There is evidence of metallic scatter Perfusion Comments LV perfusion is equivocal. The left ventricle is dilated there is patchy uptake of tracer both at rest and stress indicative of a dilated cardiomyopathy There is no evidence of inducible ischemia. Ailyn CALI CV STRESS PROCEDURES Final Resul t * ECG 12 lead (06/27/2025 2:49 PM EDT) Ventricular Rate ECG 66 BPM GEMUSE Atrial Rate 66 BPM GEMUSE P-R Interval 242 ms GEMUSE QRS Duration 122 ms GEMUSE Q-T Interval 414 ms GEMUSE QTc 434 ms GEMUSE P Wave [place] 61 degrees GEMUSE R [place] 98 degrees GEMUSE T [place] -35 degrees GEMUSE ECG Interpretation Sinus rhythm with 1st degree A-V block with frequent Premature ventricular complexes Lateral infarct (cited on or before 09-JAN-2025) Abnormal ECG When compared with ECG of 09-JAN-2025 09:24, Premature ventricular complexes are now Present GEMUSE 06/27/2025 11:2 8 AM EDT Ailyn CALI ECG ORDERABLES Final Result GEMUSE * (ABNORMAL) Lipid panel (10/07/2021) LDL/HDL Ratio 3 0 - 4 Triglycerides 130 0 - 150 mg/dL Cholesterol 189 0 - 200 mg/dL HDL 58 >=40 mg/dL LDL Cholesterol 105(A) 0 - 100 mg/dL Blood Venous blood specimen / Unknown Historical Provider LAB BLOOD ORDERABLES Nida l Result * Hepatitis C Screening (08/20/2013) Hepatitis C Screening abstracted Historical Provider HEALTH MAINTENANCE Final Result from Last 3 Months or Most Recently Relevant to Health Maintenance Insurance MEDICARE [facility] Care Teams Commercial Loan Assistant Relationship Specialty Start Date End Date Aramis Acosta MD [address] [place] [id number] PCP - General Internal Medicine 01/09/25
--- OUTSIDE RECORDS SUMMARY | 2025-08-28 09:59 | XMS_ITS | Clinical Summary ---
Author Organization [facility] Address [address] [place] [id number] Phone Care Team Providers Care Cna Instructor Name Role Phone Aramis Acosta MD Primary Care Provider [phone] Allergies Active Allergy Reactions Criticality Noted Date [...] advanced heart failure and transplant clinic at [facility] 07/2019 Stable EF 03/2021 Last Assessment [...] Office Visit [facility] Endocrinology [address] [place] [phone] Ara Walton MD [address] [place] [phone] [email or web address] Due Date Last Done Comments POTASSIUM LEVEL 1950 DEPRESSION SCREENING 1962 HEPATITIS C SCREENING 1968 COLOGUARD 1995 COLONOSCOPY 1995 COLORECTAL CANCER SCREENING 1995 FIT TEST 1995 FOBT 1995 SIGMOIDOSCOPY 1995 VIRTUAL COLONOSCOPY 1995 OSTEOPOROSIS SCREENING INITIAL (ONE-TIME) 2015 ZOSTER VACCINES (2 of 2) 11/27/2020 10/02/2020 Adult Td,Tdap Booster 05/22/2024 05/22/2014 BLOOD PRESSURE 03/12/2025 09/11/2024 INFLUENZA VACCINE (#1) 2025 , 05/30/2020, 07/12/2016 COVID-19 VACCINE ( season) 2025 08/21/2023, 09/23/2022, 04/08/2022, Additional history exists RSV VACCINE (1 - 1-dose 75+ series) 2025 LIPID PANEL 10/07/2026 10/07/2021 PNEUMOCOCCAL VACCINES (50+ [...] topic Medical Devices Not on file Insurance [employer] MEDICARE PART A & B [employer] SU[employer] MEDICARE PART A & B [employer] SU[employer] MEDICARE PART A & B [employer] SU[employer] MEDICARE PART A & B [employer] SU[employer] MEDICARE PART A & B [employer] SU[employer] MEDICARE PART A & B Care Teams Cna Instructor Relationship Specialty Start Date End Date Aramis Acosta MD [address] [place] [id number] PCP - General Internal Medicine 03/21/24 Additional Source Comments The information contained in this document represents components of the legal health record. It is not the complete legal health record.[facility]
== END 2025-08-28 10:04 | disposition home or self-care (01) ==
LOC: HO.RHES 09:14
PROVIDERS: PCP Internal Medicine Rheumatology; Visit Provider Internal Medicine Rheumatology
DX: L40.50 Arthropathic psoriasis, unspecified (principal); Z79.899 Other long term (current) drug therapy; I50.42 Chronic combined systolic (congestive) and diastolic (congestive) heart failure; M81.0 Age-related osteoporosis without current pathological fracture
CPT/HCPCS: 99214; G2211